=== PATIENT | male | born 1985 | race Two or more races ===

== ENCOUNTER 2019-04-24 11:56 | Day surgery (SDC) | payer OTHER ==
[~2019-04-24] VITALS: Ht 175.3 cm; Wt 108.6 kg
[2019-04-24 12:50] VITALS: BP 116/71
[2019-04-24] MEDS ORDERED: LACTATED RINGERS 1,000 ML IV SCH (12:52)
[2019-04-24] MEDS ORDERED: NO MEDS (13:01)
[2019-04-24] MEDS ORDERED: OXYMETAZOLINE NASAL SPRAY 0.05%, 15ML ONE (13:20)
[2019-04-24] MEDS ORDERED: LIDOCAINE 1%-EPI 1:100K, 20ML ONE (13:20)
[2019-04-24] MEDS ORDERED: MUPIROCIN OINT 2%, 22GM ONE (13:20)
[2019-04-24] MEDS ORDERED: COCAINE TOPICAL SOLN 4%, 4ML ONE (13:20)
[2019-04-24] MEDS ORDERED: GABAPENTIN 300 MG CAPSULE PO ONE (14:30)
[2019-04-24] MEDS ORDERED: ACETAMINOPHEN 500 MG TABLET PO ONE (14:30)
[2019-04-24] MEDS ORDERED: ACETAMINOPHEN 500 MG TABLET ONE (14:32)
[2019-04-24] MEDS ORDERED: GABAPENTIN 300 MG CAPSULE ONE (14:32)
[2019-04-24] MEDS ORDERED: DIPHENHYDRAMINE 50 MG/ML, 1ML IVPush PRN (15:30)
[2019-04-24] MEDS ORDERED: LABETALOL 5MG/ML, 20ML IV PRN (15:30)
[2019-04-24] MEDS ORDERED: HALOPERIDOL 5 MG/ML IV PRN ×2 (15:30)
[2019-04-24] MEDS ORDERED: PROCHLORPERAZINE 5 MG/ML, 2ML IV PRN (15:30)
[2019-04-24] MEDS ORDERED: FENTANYL PF 100 MCG/2ML IV PRN (15:30)
[2019-04-24] MEDS ORDERED: HYDROmorphone 2 MG/ML, 1ML IVPush PRN (15:30)
[2019-04-24] MEDS ORDERED: hydrALAzine 20 MG/ML, 1ML IV PRN (15:30)
[2019-04-24] MEDS ORDERED: OXYcodone 5 MG/5 ML ORAL.SOL UDC PO PRN (15:30)
[2019-04-24] MEDS ORDERED: PROMETHAZINE 25 MG/ML, 1ML IV PRN (15:30)
[2019-04-24] MEDS ORDERED: MEPERIDINE/PF 25MG/0.5ML IVPush PRN (15:30)
[2019-04-24] MEDS ORDERED: METOPROLOL 1 MG/ML, 5ML IV PRN (15:30)
[2019-04-24] MEDS ORDERED: FENTANYL PF 250 MCG/5ML ONE (15:31)
[2019-04-24] MEDS ORDERED: GLYCOPYRROLATE 0.2MG/1ML, 5ML ONE (17:02)
[2019-04-24] MEDS ORDERED: CEFAZOLIN 1,000 MG ONE (17:02)
[2019-04-24] MEDS ORDERED: PROPOFOL 10 MG/ML, 20ML ONE (17:02)
[2019-04-24] MEDS ORDERED: NEOSTIGMINE 1 MG/ML, 10ML ONE (17:02)
[2019-04-24] MEDS ORDERED: ONDANSETRON 2MG/ML, 2ML ONE (17:02)
[2019-04-24] MEDS ORDERED: DEXAMETHASONE 4 MG/ML, 1ML ONE (17:02)
[2019-04-24] MEDS ORDERED: ROCURONIUM 10MG/ML,5ML ONE (17:02)
[2019-04-24] MEDS ORDERED: SUCCINYLCHOLINE 20 MG/ML, 10ML ONE (17:02)
[2019-04-24] MEDS ORDERED: OXYcodone IR 5MG TABLET PO PRN (19:30)
== END 2019-04-24 20:45 | disposition home or self-care (01) ==
LOC: OR 11:56 → 4NOR 18:20 → OUT 20:45
PROVIDERS: ATTEND Otolaryngology Facial Plastic Surgery
DX: J34.2 Deviated nasal septum (principal); J34.89 Other specified disorders of nose and nasal sinuses; S02.2XXA Fracture of nasal bones, initial encounter for closed fracture; X58.XXXA Exposure to other specified factors, initial encounter; Y93.89 Activity, other specified; Y92.89 Other specified places as the place of occurrence of the external cause; Y99.8 Other external cause status
CPT/HCPCS: 30140; 30520; J0330; J0690; J1100; J2405; J2704; J2710; J3010; J3490; J7120; G0378